=== PATIENT | male | born 1980 | race Caucasian/White ===

== ENCOUNTER 2019-01-31 18:28 | Observation (INO) | payer OTHER ==
--- NOTE | 2019-01-31 18:41 | ED ---
General Adult HPI - General Stated complaint: Abd.pain Time Seen by Provider: 01/31/19 18:29 Source: patient, EMS Mode of arrival: EMS Limitations: no limitations - History of Present Illness Initial comments: Dictation was produced using waygum dictation software. please excuse any grammatical, word or spelling errors. Chief Complaint: 38-year-old male with past medical history of ADHD COPD bipolar disease presents with abdominal pain. History of Present Illness: 38-year-old male transferred from [facility] for acute appendicitis. Patient's 38-year-old male past 3 days she's been having right lower quadrant abdominal pain that radiates to the back. Patient has been having constitutional symptoms. Also has had 3 episodes of nausea and vomiting today. He was initially evaluated at [facility] were labs and imaging was performed. CT showed a acute appendicitis with perforation The ROS documented in this emergency department record has been reviewed and confirmed by me. Those systems with pertinent positive or negative responses have been documented in the HPI. All other systems are other negative and/or n oncontributory. PHYSICAL EXAM: General Impression: Alert and oriented x3, not in acute distress HEENT: Normocephalic atraumatic, extra-ocular movements intact, pupils equal and reactive to light bilaterally, mucous membranes moist. Cardiovascular: Heart regular rate and rhythm, S1&S2 audible, no murmurs, rubs or gallops Chest: Lungs clear to auscultation bilaterally, no rhonchi, no wheeze, no rales Abdomen: Tenderness to palpation over the right lower quadrant Musculoskeletal: Pulses present and equal in all extremities, no peripheral edema Motor: no focal deficits noted Neurological: CN II-XII grossly intact, no focal motor or sensory deficits noted Skin: Intact with no visualized rashes Psych: Normal affect and mood ED course: 38-year-old male transferred from [facility] emergency department for acute appendicitis with possible perforation. Patient was started on Zosyn at [facility]. Vital signs upon arrival are within acceptable limits. Discussed patient case with Dr. Potter who is likely aching patient to the operating room for laparoscopic possible open appendectomy. Patient continued on Zosyn. - Related Data Home Medications Medication Instructions Recorded Confirmed Dextroamphetamine/Amphetamine 20 mg PO BID 01/31/19 01/31/19 [Adderall] Diazepam [Valium] 2 mg PO DAILY PRN 01/31/19 01/31/19 Allergies Allergy/AdvReac Type Severity Reaction Status Date / Time lorazepam [From Ativan] AdvReac Hallucinati Verified 01/31/19 18:41 ons Review of Systems ROS Statement: Those systems with pertinent positive or pertinent negative responses have been documented in the HPI. ROS Other: All systems not noted in ROS Statement are negative. Past Medical History Past Medical History: Asthma, GERD/Reflux, Myocardial Infarction ([place]) Additional Past Medical History / Comment(s): [place] 2009; acute chronic pancreatitis History of Any Multi-Drug Resistant Organisms: None Reported Past Surgical History: No Surgical Hx Reported Past Psychological History: ADD/ADHD, Depression Smoking Status: Current every day smoker Past Alcohol Use History: Occasional Past Drug Use History: Marijuana General Exam Limitations: no limitations Course Vital Signs 01/31/19 01/31/19 18:29 19:15 Temperature 99.0 F 98.8 F Pulse Rate 103 H 104 H Respiratory 18 17 Rate Blood Pressure 134/93 137/80 O2 Sat by Pulse 97 95 Oximetry Disposition Clinical Impression: Acute appendicitis Disposition: ADMITTED IP TO THIS HOSP Condition: Fair Referrals: Bayron Nicholas MD [Primary Care Provider] - 1-2 days Decision Time: 19:20
[2019-01-31] MEDS ORDERED: ONDANSETRON 4 MG/2 ML VIAL IVP STA (19:13)
[2019-01-31] MEDS ORDERED: MORPHINE SULFATE 4 MG/ML SYRINGE IV PRN (19:18)
[2019-01-31] MEDS ORDERED: NALOXONE 0.4 MG/ML 1 ML VIAL IV PRN (19:18)
[2019-01-31] MEDS ORDERED: ACETAMINOPHEN TAB 325 MG TAB PO PRN (19:18)
[2019-01-31] MEDS: SODIUM CHLORIDE 0.9% 1,000 ML IV SCH (19:30)
[2019-01-31] MEDS ORDERED: PROPOFOL 10 MG/ML 20 ML VIAL IV ONE (20:30)
[2019-01-31] MEDS ORDERED: LIDOCAINE 1% INJ 10MG/ML (20 ML MDV) ONE (20:30)
[2019-01-31] MEDS ORDERED: GLYCOPYRROLATE 0.2 MG/ML 2 ML VIAL ONE (20:30)
[2019-01-31] MEDS ORDERED: HYDROmorphone (PF) 1 MG/ML ONE (20:30)
[2019-01-31] MEDS ORDERED: BUPIVACAIN-EPI 0.25%-1:200,000 30 ML VIAL SQ ONE (20:30)
[2019-01-31] MEDS ORDERED: ONDANSETRON 4 MG/2 ML VIAL ONE (20:30)
[2019-01-31] MEDS ORDERED: SODIUM CHLORIDE 0.9% 1,000 ML IV ONE (20:30)
[2019-01-31] MEDS ORDERED: fentaNYL (PF) 50 MCG/ML 2 ML AMP ONE (20:30)
[2019-01-31] MEDS ORDERED: NEOSTIGMINE 1 MG/ML 10 ML VIAL ONE (20:30)
--- NOTE | 2019-01-31 20:32 | P.GSHP ---
History of Present Illness H&P Date: 01/31/19 Chief Complaint: abdominal pain The patient's a 38-year-old man who presented with 3 days of abdominal pain. A computed tomography scan it out side facility showed appendicitis with concerns for perforation. He has had some nausea and vomiting. No previous abdominal surgery - Review of Systems All systems: negative Past Medical History Past Medical History: Asthma, GERD/Reflux, Myocardial Infarction ([place]) Additional Past Medical History / Comment(s): [place] 2009; acute chronic pancreatitis History of Any Multi-Drug Resistant Organisms: None Reported Past Surgical History: No Surgical Hx Reported Past Psychological History: ADD/ADHD, Depression Smoking Status: Current every day smoker Past Alcohol Use History: Occasional Past Drug Use History: Marijuana Medications and Allergies Home Medications Medication Instructions Recorded Confirmed Type Dextroamphetamine/Amphetamine 20 mg PO BID 01/31/19 01/31/19 History [Adderall] Diazepam [Valium] 2 mg PO DAILY PRN 01/31/19 01/31/19 History Allergies Allergy/AdvReac Type Severity Reaction Status Date / Time lorazepam [From Ativan] AdvReac Hallucinati Verified 01/31/19 18:41 ons Surgical - Exam Osteopathic Statement: *. No significant issues noted on an osteopathic structural exam other than those noted in the History and Physical/Consult. Vital Signs Temp Pulse Resp BP Pulse Ox 99.0 F 103 H 18 134/93 97 01/31/19 18:29 01/31/19 18:29 01/31/19 18:29 01/31/19 18:29 01/31/19 18:29 - General well developed, well nourished, no distress - Eyes normal ocular movement - Neck trachea midline - Respiratory normal expansion, clear to auscultation - Cardiovascular Rhythm: regular - Abdomen Abdomen: tender (Right lower quadrant) Assessment and Plan (1) Acute appendicitis Current Visit: Yes Status: Acute Code(s): K35.80 - UNSPECIFIED ACUTE APPENDICITIS SNOMED Code(s): 77678126 Plan: Laparoscopic appendectomy possible open. The procedure risks and complications were discussed. Questions were encouraged and answered. Usual postoperative course was discussed. We'll proceed with surgery
[2019-01-31] MEDS ORDERED: LEVOFLOXACIN 500MG-D5W PMX 500 MG in DEXTROSE/WATER 1 100ML.BAG IVPB STA (20:47)
[2019-01-31] MEDS ORDERED: metroNIDAZOLE-NS PMX 500 MG in SALINE 1 100ML.BAG IVPB STA (20:47)
[2019-01-31] MEDS ORDERED: HYDROcodone/APAP 5-325MG 1 EACH TAB PO PRN ×2 (21:22)
[2019-01-31] MEDS ORDERED: HYDROmorphone 0.5 MG/0.5 ML SYRINGE IVP PRN (21:22)
[2019-01-31] MEDS ORDERED: LACTATED RINGERS 1,000 ML IV ONE (21:22)
--- NOTE | 2019-01-31 21:22 | P.OP ---
Date of Procedure: 01/31/19 Preoperative Diagnosis: Acute appendicitis Postoperative Diagnosis: Acute appendicitis Procedure(s) Performed: Laparoscopic appendectomy Anesthesia: SHARI Surgeon: Lida Hollingsworth Estimated Blood Loss (ml): 25 Pathology: other (Appendix) Condition: stable Disposition: PACU Indications for Procedure: Patient presented with 3 days of abdominal pain with a computed tomography scan suggestive of appendicitis with possible perforation Description of Procedure: The patient's taken the operative suite where he is prepped and draped in the usual sterile manner under general endotracheal anesthetic. An infraumbilical incision was made and a Veress needle was placed into the abdominal cavity. Pneumoperitoneum was established with CO2 gas. Sites are chosen for accessory trochars needs are placed through small skin incisions. Evidence of an acutely inflamed appendix. There is a little inflammatory fluid. No evidence of abscess or gross perforation. The liver, diaphragm, large and small bowel are otherwise normal where they were seen. The appendix is dissected free from the sidewall of the abdomen using harmonic scissors. The cecum was reflected somewhat medially. The meso appendix was then taken down with harmonic scissors to the base. The base the appendix was suture ligated with 0 PDS Endoloops. The appendix was transected and placed into a specimen retrieval bag. The paracolic gutter and pelvis were irrigated and aspirated. The pneumoperitoneum was released. The trochars were removed. The specimen retrieval bag was removed. The fascia at the umbilicus was closed with 0 Vicryl. The skin incisions were closed with 4-0 Vicryl in a subcuticular manner. Steri-Strips and dressings were applied. He tolerated the procedure without difficulty and was taken recovery room in satisfactory condition. According to or personnel, all counts were correct.
[2019-01-31] MEDS ORDERED: DIAZEPAM 2 MG TAB PO PRN (21:25)
[2019-01-31] MEDS: HYDROmorphone 1 MG/ML 1 ML SYRINGE IVP ONE ×4 (21:42→22:05)
[2019-01-31] MEDS ORDERED: PROMETHAZINE INJ 25 MG/ML 1 ML VIAL IVPB ONE (21:43)
[2019-01-31] MEDS: KETOROLAC 30 MG/ML 1 ML VIAL IVP SCH (22:03)
[2019-01-31] MEDS ORDERED: MIDAZOLAM (PF) 2 MG/2 ML VIAL IVP ONE (22:05)
[2019-02-01] MEDS: KETOROLAC 30 MG/ML 1 ML VIAL IVP SCH ×2 (03:02→07:13)
[2019-02-01 03:08] VITALS: RESP 16
[2019-02-01] MEDS ORDERED: IPRATROPIUM-ALBUTEROL 3 ML NEB INHALATION PRN (03:42)
[2019-02-01] MEDS: SODIUM CHLORIDE 0.9% 1,000 ML IV SCH (04:22)
[2019-02-01] MEDS ORDERED: metroNIDAZOLE-NS PMX 500 MG in SALINE 1 100ML.BAG IVPB SCH (05:00)
[2019-02-01 07:46] VITALS: BP 111/73; PULSE 85; TEMP 98.5
[2019-02-01 08:46] LABS: Basophils % (A) 0 %; Eosinophils # (A) 0.1 k/uL (0-0.7); Eosinophils % (A) 1 %; HCT 40.7 % (39.0-53.0); HGB 13.5 gm/dL (13.0-17.5); Lymphocytes # (A) 1.4 k/uL (1.0-4.8); Lymphocytes % (A) 12 %; MCHC 33.2 g/dL (31.0-37.0); MCV 90.4 fL (80.0-100.0); Mean Platelet Volume 8.1; Monocytes # (A) 0.6 k/uL (0-1.0); Monocytes % (A) 5 %; Neutrophils # (A) 9.9 k/uL (1.3-7.7); Neutrophils % (A) 82 %; Platelet Count 140 k/uL (150-450); RBC 4.51 m/uL (4.30-5.90); RDW 14.2 % (11.5-15.5); WBC 12.2 k/uL (3.8-10.6)
[2019-02-01] MEDS ORDERED: NON-FORMULARY DRUG (Dextroamphetamine/Amphetamine [Adderall] 20 MG) PO SCH (09:00)
[2019-02-01] MEDS ORDERED: FAMOTIDINE 20 MG TAB PO SCH (09:00)
--- NOTE | 2019-02-01 09:34 | P.DS ---
Providers Date of admission: 01/31/19 19:18 Expected date of discharge: 02/01/19 Attending physician: Lida Hollingsworth Primary care physician: Bayron Nicholas - Discharge Diagnosis(es) (1) Acute appendicitis Current Visit: Yes Status: Acute Hospital Course: The patient was transferred from an outside facility with diagnosis of acute appendicitis. He was taken to the OR where he underwent laparoscopic appendectomy. The appendix was inflamed without gangrenous change, perforation or abscess. He's given prophylactic antibiotics. By postoperative day 1 he is doing well. Pain is much improved. No nausea or vomiting. Tolerating a diet. Procedures: Laparoscopic appendectomy Patient Condition at Discharge: Fair Plan - Discharge Summary Discharge Rx Participant: Yes New Discharge Prescriptions: New HYDROcodone/APAP 5-325MG [[place] 5-325] 1 - 2 tab PO Q6HR PRN #15 tab PRN Reason: Pain No Action Diazepam [Valium] 2 mg PO DAILY PRN PRN Reason: Anxiety Dextroamphetamine/Amphetamine [Adderall] 20 mg PO BID Discharge Medication List Dextroamphetamine/Amphetamine [Adderall] 20 mg PO BID 01/31/19 [History] Diazepam [Valium] 2 mg PO DAILY PRN 01/31/19 [History] HYDROcodone/APAP 5-325MG [[place] 5-325] 1 - 2 tab PO Q6HR PRN #15 tab 02/01/19 [Rx] Follow up Appointment(s)/Referral(s): Lida Hollingsworth DO [Doctor of Osteopathic Medicine] - 02/16/19 3:00 pm Bayron Nicholas MD [Primary Care Provider] - 02/04/19 3:00 pm (At [facility] [phone]) Patient Instructions/Handouts: Appendicitis (GEN), Laparoscopic Appendectomy (DC) Activity/Diet/Wound Care/Special Instructions: Keeps the Band-Aids clean and dry. You may remove them and shower on Friday. Light dressing to the incisions as needed. Expect some bruising by the bellybutton incision. No driving while taking pain medication. He may take Motrin, Tylenol, Aleve instead of the pain pills. Call if you develop fevers, chills, nausea, vomiting, return of severe right lower quadrant pain. Discharge Disposition: HOME SELF-CARE
== END 2019-02-01 10:37 | disposition home or self-care (01) ==
LOC: EC 18:28 → 4SSUR 19:18
PROVIDERS: ADMIT Surgery; ATTEND Surgery
DX: K35.30 Acute appendicitis with localized peritonitis, without perforation or gangrene (principal); J44.9 Chronic obstructive pulmonary disease, unspecified; F90.9 Attention-deficit hyperactivity disorder, unspecified type; F31.9 Bipolar disorder, unspecified; K21.9 Gastro-esophageal reflux disease without esophagitis; F43.10 Post-traumatic stress disorder, unspecified; K86.1 Other chronic pancreatitis; F17.210 Nicotine dependence, cigarettes, uncomplicated; F12.90 Cannabis use, unspecified, uncomplicated; Z79.899 Other long term (current) drug therapy; Z88.8 Allergy status to other drugs, medicaments and biological substances; I25.2 Old myocardial infarction
CPT/HCPCS: 44970; 96374; 99285; 88304; 85025; G0378 ×2; J2550; J2710; J2405; J1956; J2001; J3010; J1885 ×2; J1170 ×2; J2704; J2250

== ENCOUNTER 2023-10-07 19:28 | Emergency (ER) | payer OTHER, MEDICARE ==
--- NOTE | 2023-10-07 20:11 | ED ---
Recheck HPI - General Source: patient, RN notes reviewed Mode of arrival: ambulatory Limitations: no limitations <Kelsy Chase - Last Filed: 10/07/23 20:10> - General Source: patient, RN notes reviewed Mode of arrival: ambulatory Limitations: no limitations <Cristofer Otero - Last Filed: 10/07/23 21:08> - General Chief Complaint: Recheck/Abnormal Lab/Rx Stated Complaint: Vomiting blood Time Seen by Provider: 10/07/23 20:10 - History of Present Illness Initial Comments: Patient is a 43-year-old male presented to ER with a chief complaint of hematemesis. Patient has a history of pancreatitis. Been ongoing issue for the past 5 years. Reporting mild abdominal pain currently. Patient also was endorsing fevers, chills. He is worried he has cancer. (Kelsy Chase) Patient is a pleasant 43-year-old male presenting to the emergency department with concern for pancreatitis. Patient admits to drinking alcohol. Patient has chronic epigastric pain for the past 4 years, somewhat worse recently. Patient does occasionally vomit and does occasionally vomit blood. Patient did do this once today. Patient does have family history of pancreatic cancer and is hoping to get checked for this. Patient talked to his doctor about having a PET scan however he is having insurance problems obtaining that. (Cristofer Otero) - Related Data Home Medications Medication Instructions Recorded Confirmed Dextroamphetamine/Amphetamine 20 mg PO BID 01/31/19 01/31/19 [Adderall] diazePAM [Valium] 2 mg PO DAILY PRN 01/31/19 01/31/19 Previous Rx's Medication Instructions Recorded HYDROcodone/APAP 5-325MG [[place] 1 - 2 tab PO Q6HR PRN #15 tab 02/01/19 5-325] Allergies Allergy/AdvReac Type Severity Reaction Status Date / Time lorazepam [From Ativan] AdvReac Hallucinati Verified 10/07/23 20:10 ons Review of Systems ROS Other: All systems not noted in ROS Statement are negative. <Kelsy Chase - Last Filed: 10/07/23 20:10> ROS Other: All systems not noted in ROS Statement are negative. Constitutional: Denies: fever Eyes: Denies: eye pain ENT: Denies: ear pain Gastrointestinal: Reports: as per HPI, abdominal pain, vomiting, hematemesis Musculoskeletal: Denies: back pain Skin: Denies: rash <Cristofer Otero - Last Filed: 10/07/23 21:08> ROS Statement: Those systems with pertinent positive or pertinent negative responses have been documented in the HPI. Past Medical History Past Medical History: Asthma, GERD/Reflux, Myocardial Infarction ([place]) Additional Past Medical History / Comment(s): [place] 2009; acute chronic pancreatitis Last Myocardial Infarction Date:: 2009 History of Any Multi-Drug Resistant Organisms: None Reported Past Surgical History: No Surgical Hx Reported, Appendectomy Past Anesthesia/Blood Transfusion Reactions: Previous Problems w/ Anesthesia Additional Past Anesthesia/Blood Transfusion Reaction / Comment(s): nightmares from it Past Psychological History: ADD/ADHD, Depression Smoking Status: Current every day smoker Past Alcohol Use History: Abuse, Daily, Heavy Past Drug Use History: Marijuana - Past Family History Mother Family Medical History: No Reported History Father Family Medical History: No Reported History <Kelsy Chase - Last Filed: 10/07/23 20:10> General Exam Limitations: no limitations <Kelsy Chase - Last Filed: 10/07/23 20:10> Limitations: no limitations General appearance: alert, in no apparent distress Head exam: Present: normocephalic Eye exam: Present: normal appearance Neck exam: Present: normal inspection Respiratory exam: Present: normal lung sounds bilaterally Cardiovascular Exam: Present: regular rate, normal rhythm GI/Abdominal exam: Present: soft, tenderness (Mild epigastric tenderness to palpate) Extremities exam: Present: normal inspection Neurological exam: Present: alert Psychiatric exam: Present: normal affect, normal mood Skin exam: Present: normal color <Cristofer Otero - Last Filed: 10/07/23 21:08> - General Exam Comments Initial Comments: Visual Physical Exam Vital signs reviewed General: Well-appearing, nontoxic, no acute distress. Head: Normocephalic, atraumatic Eyes: PERRLA, EOMI ENT: Airway patent Chest: Nonlabored breathing Skin: No visual rash, normal skin tone Neuro: Alert and oriented 3 Musculoskeletal: No gross abnormalities (Kelsy Chase) Course Vital Signs 10/07/23 20:07 Temperature 97.8 F Pulse Rate 92 Respiratory 18 Rate Blood Pressure 131/88 O2 Sat by Pulse 97 Oximetry Medical Decision Making <Kelsy Chase - Last Filed: 10/07/23 20:10> <Cristofer Otero - Last Filed: 10/07/23 21:08> - Medical Decision Making I performed the quick note portion of this chart. Electronically signed by Kelsy Chase PA-C (Kelsy Chase) Was pt. sent in by a medical professional or institution (SUSHIL Pelaez, FORDER OPERATOR, urgent care, hospital, or assisted...) When possible be specific @ -No Did you speak to anyone other than the patient for history (EMS, parent, family, police, friend...)? What history was obtained from this source @ -No Did you review nursing and triage notes (agree or disagree)? Why? @ -I reviewed and agree with nursing and triage notes Were old charts reviewed (outside hosp., previous admission, EMS record, old EKG, old radiological studies, urgent care reports/EKG's, assisted records)? Report findings @ -No old charts were reviewed Differential Diagnosis (chest pain, altered mental status, abdominal pain women, abdominal pain men, vaginal bleeding, weakness, fever, dyspnea, syncope, headache, dizziness, GI bleed, back pain, seizure, CVA, palpatations, mental health, musculoskeletal)? @ -Differential Abdominal Pain Men: Appendicitis, cholecystitis, diverticulosis, ischemic bowel, pancreatitis, hepatitis, UTI, gastroenteritis, AAA, incarcerated hernia, bowel obstruction, constipation, inflammatory bowel, hepatitis, peptic ulcer disease, splenic infarction, perforated viscus, testicular torsion, this is not meant to be an all-inclusive list EKG interpreted by me (3pts min.). @ -As above X-rays interpreted by me (1pt min.). @ -None done CT interpreted by me (1pt min.). @ -None done U/S interpreted by me (1pt. min.). @ -None done What testing was considered but not performed or refused? (CT, X-rays, U/S, labs)? Why? @ -Considered ordering testing including lab work and imaging however patient refuses stating that he has to go What meds were considered but not given or refused? Why? @ -Consider medications for stomach and pain and nausea however patient refused and states yes to go Did you discuss the management of the patient with other professionals (professionals i.e. Dr., PA, FORDER OPERATOR, lab, RT, psych nurse, renal social worker, senior occupational therapist, teacher, physics technical officer, correctional case manager)? Give summary @ -No Was smoking cessation discussed for >3mins.? @ -No Was critical care preformed (if so, how long)? @ -No Were there social determinants of health that impacted care today? How? (Homelessness, low income, unemployed, alcoholism, drug addiction, transportation, low edu. Level, literacy, decrease access to med. care, long-term, rehab)? @ -No Was there de-escalation of care discussed even if they declined (Discuss DNR or withdrawal of care, Hospice)? DNR status @ -No What co-morbidities impacted this encounter? (DM, HTN, Smoking, COPD, CAD, Cancer, CVA, ARF, Chemo, Hep., AIDS, mental health diagnosis, sleep apnea, morbid obesity)? @ -Chronic alcohol use Was patient admitted / discharged? Hospital course, mention meds given and route, prescriptions, significant lab abnormalities, going to OR and other pertinent info. @ -Patient was encouraged to have further diagnosis and treatment and reevaluation. Patient states he is unable to stay and needs to go for family reasons. Patient will leave AGAINST MEDICAL ADVICE patient is made aware that there could be poor outcomes including worsening symptoms or Undiagnosed new problem with uncertain prognosis? @ -No Drug Therapy requiring intensive monitoring for toxicity (Heparin, Nitro, Insulin, Cardizem)? @ -No Were any procedures done? @ -No Diagnosis/symptom? @ -Abdominal pain Acute, or Chronic, or Acute on Chronic? @ -Acute on chronic Uncomplicated (without systemic symptoms) or Complicated (systemic symptoms)? @ -Default Side effects of treatment? @ -No Exacerbation, Progression, or Severe Exacerbation? @ -No Poses a threat to life or bodily function? How? (Chest pain, [place], [place], pneumonia, PE, COPD, DKA, ARF, appy, cholecystitis, CVA, Diverticulitis, Homicidal, Suicidal, threat to staff... and all critical care pts) @ -No (Cristofer Otero) Disposition <Kelsy Chase - Last Filed: 10/07/23 20:10> Is patient prescribed a controlled substance at d/c from ED?: No Time of Disposition: 21:07 <Cristofer Otero - Last Filed: 10/07/23 21:08> Clinical Impression: Abdominal pain Disposition: LEFT AGAINST MEDICAL ADVICE Additional Instructions: Patient left prior to getting discharge instruction Referrals: Dora Almendarez NPC [Primary Care Provider] - 1-2 days
[2023-10-07 20:24] VITALS: BP 131/88; PULSE 92; RESP 18; TEMP 97.8
== END 2023-10-07 20:55 | disposition left against medical advice (07) ==
LOC: EC 19:28
DX: R10.13 Epigastric pain (principal); I25.2 Old myocardial infarction; J45.909 Unspecified asthma, uncomplicated; F90.9 Attention-deficit hyperactivity disorder, unspecified type; F32.A Depression, unspecified; F17.200 Nicotine dependence, unspecified, uncomplicated; F12.90 Cannabis use, unspecified, uncomplicated; Z79.899 Other long term (current) drug therapy; Z88.8 Allergy status to other drugs, medicaments and biological substances; Z53.29 Procedure and treatment not carried out because of patient's decision for other reasons
CPT/HCPCS: 99283

== ENCOUNTER 2024-12-30 14:39 | Emergency (ER) | payer MEDICARE, OTHER ==
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
[2024-12-30] MEDS: ACETAMINOPHEN TAB 500 MG TAB PO STA (16:48)
[2024-12-30] MEDS: KETOROLAC 15 MG/ML 1 ML VIAL IM STA (16:48)
[2024-12-30] MEDS: LIDOCAINE 4% PATCH TOPICAL ONE (16:49)
[2024-12-30 17:34] VITALS: BP 136/84; PULSE 80; RESP 18; TEMP 98.1
== END 2024-12-30 17:35 | disposition home or self-care (01) ==
LOC: EC 14:39
DX: S20.212A Contusion of left front wall of thorax, initial encounter (principal); S60.212A Contusion of left wrist, initial encounter; F17.200 Nicotine dependence, unspecified, uncomplicated; Z88.8 Allergy status to other drugs, medicaments and biological substances; W19.XXXA Unspecified fall, initial encounter; Y93.55 Activity, bike riding
CPT/HCPCS: 71101; 73110; 99283; 96372; J1885